=== PATIENT | male | born 1970 | race Caucasian/White ===

== ENCOUNTER 2022-08-18 08:28 | Inpatient (IN) | payer OTHER, SELFPAY ==
[2022-08-13 12:42] VITALS: BMI 28.7
[2022-08-18] VITALS (12 sets, daily range): BP systolic 81–129; BP diastolic 38–82; PULSE 67–99; RESP 12–20; TEMP 35.9–36.7; O2SAT 90–97; BMI 28.5
--- NOTE | 2022-08-18 | PATH_ITS ---
[facility] Accession Number: [id number] No. of containers..01 Tissue . 01 Material submitted: . prostate - PROSTATE . 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 Ayan grade 3+3=6. Two minute foci (0.4 cm and 0.1cm) in two separate fragments, involving less than 5% of the extensively submitted specimen. Seminal vesicle invasion not identified. Perinerual invasion not identified. Extraprostatic fat invasion not identified. Lymphovascular invasion: Not identified. Margins: Uninvolved. Additional pathologic findings: Prostatic hyperplasia. See comment. [facility] 08/28/2022 1658 Local . 01 Comment: Extensively submitted prostatectomy specimen shows two minute foci of adenocarcinoma on slides A11 and A14 and is confirmed with a high molecular weight and p63 cocktail immunostain and a AMACR immunostain (performed on slide A11).Controls stain appropriately. No ink is identified and hence site assessment canot be determined. Tumor quantitation is less than 5%. Selected slides (A11 and A14) have has also been reviewed by Dr. Leonard Ortiz, who concurs with the diagnosis. . * This test was developed and its performance characteristics determined by [facility]. It has not been cleared or approved by the U.S. Food and Drug Administration. The FDA has determined that such clearance or approval is not necessary. This test is used for clinical purposes. It should not be regarded as investigational or for research. . 01 Electronically signed: . Bethany Hicks MD, Pathologist NPI- [id number] . 01 Gross description: . Received in formation, labeled prostate is a 26-gram simple prostatectomy specimen which measures 3.5 cm from apex to base, 4.2 cm from right to left, and 3.1 cm from anterior to posterior. The right half is marked with blue, and the left half with black ink. The specimen is bisected through the urethra into right and left halves, revealing a 2.0 x 1.2 cm urethra with pink-dye unremarkable mucosa. Each half is then serially sectioned proceeding from apex to base revealing a multinodular cut surface with the nodules ranging up to 2.0 cm in greatest dimension. There are no areas of orange/gold discoloration identified. There are no discrete masses identified. Uninvolved prostate parenchyma is pink-dye and spongy. Also submitted in the specimen container is a 4.0 x 3.5 x 1.5 cm irregular, fragmented and cauterized portion of red-brown stromal tissue. Sectioning reveals a pale, yellow-dye smooth cut surface. There is also a 1.7 cm in length by 0.6 cm in diameter, cylindrical portion of apparent seminal vesicle. Rn Perioperative sections of the right half of the specimen are submitted in A1-A5. Rn Perioperative from the left half are submitted in A6-A10. Rn Perioperative sections of the possible seminal vesicle and separate stromal tissue are submitted in A11. Additional sections are submitted in cassettes A12-A21. ([id number]) /MRV 08/26/[address] [place] [address] . Pathologist provided ICD-10: N40.1, C61 . 01 CPT . 484459, [id number], V00392 Specimen Comment: A courtesy copy of this report has been sent to [phone] Performed at: 01 [facility] [address] [place] [address], [place], [place] [id number] MD Jed Chiu MD Phone: [phone]
[2022-08-18] MEDS: LACTATED RINGERS 1,000 ML 21 ML IV ×2 (09:25→12:51)
[2022-08-18 09:26] LABS: Hematocrit 45.5 % (41-53); Hemoglobin 15.4 g/dL (13.5-17.5)
[2022-08-18 09:54] LABS: COVID19 -Nasal RAPID Negative (Negative)
--- NOTE | 2022-08-18 10:27 | P.OP.PRE_ITS ---
Pre-operative Note COVID-19 Criteria for continued procedure: Expected advancement of disease process, Possibility delay results in more complex future surgery or treatment, Increased loss of function, Deterioration of the patient's condition or overall health, Delay expected to result in less-positive ultimate med/surg outcome and Non- surgical alternatives not available or appropriate per current SOC Interval Note History & Physical reviewed/Exam performed by Physician: Yes Changes to H&P: No
[2022-08-18] MEDS: CEFAZOLIN 2 GM/100 ML PREMIX 100 ML IV (11:05)
--- NOTE | 2022-08-18 11:53 | SUR.OPER ---
Supine on padded OR bed, head on pillow, arms secured on padded arm boards at <90 degrees abduction, legs uncrossed, safety belt at thigh,
[2022-08-18] MEDS: BUPIVACAINE 0.5% W/ EPI (PF) 30 ML VIAL INJ (12:00)
[2022-08-18] MEDS: GENTAMICIN 160 MG IRR (12:01)
[2022-08-18] MEDS: SODIUM CHLORIDE 0.9% IRR (12:01)
[2022-08-18] MEDS: BUPIVACAINE LIPOSOME 266 MG/20 ML VIAL INJ (12:03)
[2022-08-18] MEDS: TRANEXAMIC ACID 1,000 MG in SODIUM CHLORIDE 0.9% 100 ML 200 MG IV (12:25)
[2022-08-18 13:24] LABS: Appearance Urine UA CLEAR; Bilirubin Urine UA NEGATIVE (NEGATIVE); Color Urine UA YELLOW; Glucose Urine UA NEGATIVE (Negative); Ketones Urine UA NEGATIVE (NEGATIVE); Leukocyte Esterase Urine UA NEGATIVE (NEGATIVE); Nitrite Urine UA NEGATIVE (Negative); Occult Blood Urine UA 3+ (Negative); Protein Urine UA NEGATIVE (Negative); Specific Gravity Urine UA 1.025 (1.000-1.035); Urobilinogen Urine UA 0.2 E.U./dL (0.2)
[2022-08-18 13:33] LABS: Bacteria Urine None Seen; Culture Indicated Urine Cult Not Indicated; RBC Urine 30-100/HPF (0-5/HPF); Squamous Epithelial Cell Urine 0-1 /HPF (0-5/HPF); WBC Urine 0-1/HPF (0-5/HPF)
--- NOTE | 2022-08-18 13:42 | P.OP_ITS ---
Operative Date/Time/Diagnoses Date of procedure: 08/18/22 Time of procedure: 13:42 Pre-op diagnosis: 1. Bladder outlet obstruction. 2. Failure medical therapy. Post-op diagnosis: same Procedure & Clinicians Procedure: 1. Simple open prostatectomy. Same procedure as scheduled: Yes Surgeon: Gordon Black Daycare Assistant: Tia Low Click Yes if Unassisted: No Anesthesia Type: General, Spinal (Duramorph spinal) and Local (0.25% Marcaine with epinephrine and diluted Exparel 1.33%.) Operative Notes Findings: 1. Normal midline lower abdominal tissue planes. 2. Prostate trabeculation. 3. Nodular BPH with dense adherence to surgical capsule. Closure Type: primary Specimen(s): other (Prostate adenoma.) Applied: catheter (Twenty-two Portuguese [address] hematuria catheter to gravity drainage.) and drain(s) (18. Portuguese fenestrated Volodymyr drain.) Estimated Blood Loss (mL): 500 Blood products transfused: none Procedure in detail: The patient underwent placement of Duramorph spinal anesthesia. Evaluation Specialist reported that a small amount of CSF was seen at initial needle placement. Otherwise unremarkable. The patient was then positioned supine and was administered general anesthesia. The abdomen, genitalia, and groin were then prepped and draped in sterile fashion. A midline infraumbilical incision was then made above the pubic symphysis in using blunt, sharp, and cautery technique midline lower abdominal wall was divided and the retropubic pelvic peritoneum was entered. A 20 Portuguese Alaniz catheter was inserted, the balloon inflated 10 cc, and the contents the bladder drained. 450 cc of sterile saline were then instilled in the bladder and the catheter clamped. The bladder was identified in the anterior wall and dome were then cleared of adherent fat. 0.25% Marcaine with epinephrine was then used to infiltrate the midline anterior bladder wall. A cystotomy was then created in the bladder contents drained. This cystotomy was then extended distally to just above the bladder neck using the power seal cauterized and ligating device. Retractors were positioned appropriately for visualization and access. A solution of 0.25% Marcaine with epinephrine was then used to infiltrate the mucosa and subcutaneous smooth muscle of the bladder neck circumferentially. Cautery pen was then used to create a circumferential incision around the bladder neck to include the protruding median lobe and lateral lobe adenoma. The ureteral orifices were identified bilaterally and were generously avoided. The cautery pen was then using combination of blunt dissection to reach the surface of the adenoma. The appropriate plane was then followed using blunt, sharp common cautery technique circumferentially and distally. A 0 Vicryl suture was used to engage the adenoma for mobilization and visualization through dissection. Ultimately the apical region was encountered and the urethra was divided from the prostate apex using blunt technique. Prostate fossa was then packed with a lap sponge for approximately 5 minutes. Lap sponge was then removed and areas of bleeding anteriorly and at the right lateral aspect were suture ligated for hemostasis using a [id number] technique. An additional 2-0 Monocryl was then placed in the midline posterior bladder neck and then secured approximately midway down the prostatic adenoma void and tied to the posterior capsule. A [address] hemat[address] catheter was then advanced into the bladder over a catheter guide and then directed through the prostate and into the bladder with the index finger the opposite hand. A 2 layer closure the cystotomy was then conducted using 2-0 Monocryl. The inner mucosal muscular layer was a running, intermittently locking technique. The outer, serosa muscular layer was a running vertical mattress using a Lembert technique. The balloon was then inflated to 30 cc and bladder was irrigated to a light pink. No clots were seen. Irrigation was repeated again prior to closure of the abdominal wall and then a 3rd time after closure of the abdominal wall. A 18 Portuguese fenestrated Volodymyr drain (15 Portuguese Volodymyr drain on back order) was then placed through a separate stab incision to the right of the midline incision for the end of the drain positioned in the space of Retzius. It was secured to the skin with 2-0 silk using Giles sandal technique in usual fashion. The midline rectus abdominis fascia was then reapproximated using running 0 PDS. One suture was started at the superior apex, the other suture at the inferior apex and were then run to a proximally the mid point where the 2 were tied to 1 another. Subcutaneous Aramis's fascia was closed with running 3-0 Vicryl. The skin was reapproximated with a running 4-0 Monocryl using a subcuticular technique. The skin surfaces were cleaned and dried. Telfa was then cut and tailored appropriately to fit over the incision line in the drain site. A transparent Op site was then applied over both the incision and the drain site. The patient was then awakened, transferred to [facility], and transported to recovery awake and in stable condition. A manager surgical was required in this case for crucial assistance and retraction, assistance with hemostasis, exposure, and access. Complications: none Post-operative Condition: stable Disposition: PACU Plan for aftercare: Admit to acute care.
[2022-08-18] MEDS: LACTATED RINGERS 1,000 ML 125 ML IV ×2 (15:00→23:14)
[2022-08-18 15:22] LABS: Estimated Glomerular Filt Rate > 60 mL/min (>60)
[2022-08-18] MEDS: OXYCODONE IR 5 MG TABLET PO (18:49)
--- NOTE | 2022-08-18 19:28 | PC.NURSE ---
Patients ml dressing is cdi. He has a 3 way stock putting out red to pink urine. He has been up ambulating and tolerating this well. Given an oxycodone as he state that he feels pressure in abdomen. Tried to have a bm, explained to patient that he does not want to strain when using the bathroom. in room. Stock patent and flowing red urine.
[2022-08-18] MEDS: TAMSULOSIN 0.4 MG CAPSULE PO (20:14)
[2022-08-18] MEDS: ATORVASTATIN 20 MG TABLET 40 MG PO (20:14)
[2022-08-19] VITALS: BP 103/52; PULSE 82; TEMP 37.1; O2SAT 96
[2022-08-19] MEDS: OXYCODONE IR 5 MG TABLET PO ×6 (01:31→20:58)
--- NOTE | 2022-08-19 07:25 | P.PN_ITS ---
Subjective Subjective Date Patient Seen: 08/19/22 Time Patient Seen: 07:10 Interval history: The patient is a 52-year-old male postoperative day 1 status post simple prostatectomy for bladder outlet obstruction and failure medical therapy. Exam Vital Signs (past 8 hours): - 08/19/22 00:00 Temperature 98.8 F Pulse Rate 82 Blood Pressure 103/52 L Pulse Oximetry 96 Oxygen Flow Rate 0 Oxygen Delivery Method Room Air Oxygen Flow Rate 0 Narrative Exam Narrative: He is ambulating about the room and in no distress, but does complain of bladder spasms symptoms. Chest-equal and unlabored expansion bilaterally. Heart-normal sinus rhythm. Abdomen-KUMAR drain intact with scant serosanguineous output. Dressings are intact. Alaniz-intact and draining light, pink tinged urine without clot. Objective Labs 08/18/22 09:15 08/18/22 14:50 Labs: Laboratory Results - last 24 hr 08/18/22 08/18/22 08/18/22 09:05 09:15 09:15 Hgb 15.4 Hct 45.5 Creatinine Estimated GFR Urine Color Urine Appearance Urine pH Ur Specific [place] Urine Protein Urine Glucose (UA) Urine Ketones Urine Occult Blood Urine Nitrate Urine Bilirubin Urine Urobilinogen Ur Leukocyte Esterase Urine RBC Urine WBC Ur Squamous Epith Cells Urine Bacteria Ur Culture Indicated? SARS-CoV-2 (PCR) Negative Blood Type O Positive Antibody Screen Negative 08/18/22 08/18/22 11:49 14:50 Hgb Hct Creatinine 1.11 Estimated GFR > 60 Urine Color Yellow Urine Appearance Clear Urine pH 6.0 Ur Specific [place] 1.025 Urine Protein Negative Urine Glucose (UA) Negative Urine Ketones Negative Urine Occult Blood 3+ H Urine Nitrate Negative Urine Bilirubin Negative Urine Urobilinogen 0.2 Ur Leukocyte Esterase Negative Urine RBC 30-100/hpf H Urine WBC 0-1/hpf Ur Squamous Epith Cells 0-1 /hpf Urine Bacteria None seen Ur Culture Indicated? Cult not indicated SARS-CoV-2 (PCR) Blood Type Antibody Screen PFSH Medical History (Updated 08/13/22 @ 13:17 by Nikki Angelo RN) BPH w urinary obs/LUTS COVID-19 virus infection (11/2021) Enlarged prostate Family history of malignant neoplasm of prostate Head injury (~1994) Hx of hyperlipidemia Surgical History (Updated 08/13/22 @ 13:09 by Nikki Angelo RN) Hx of arthroscopic knee surgery Family History Father FH: CVA (cerebrovascular accident) Hyperlipidemia Social History marital status: number of children: 0 household members: spouse and children Smoking Status: Never smoker alcohol intake: current Assessment & Plan Assessment & Plan narrative: Assessment: 1. Stable postop day 1 status post simple open prostatectomy. 2. Bladder spasm. 3. Pathology pending. Plan: 1. Increase diet and activity. 2. Ditropan XL as needed for bladder spasm. 3. Follow-up on surgical pathology when final. Time Spent With Patient Critical Care time: I spent a total of [] minutes of critical care time on this patient's care today; this time is exclusive of procedural time. Quality VTE Deep Vein Thrombosis/Pulmonary Embolism Present on Admission: No
[2022-08-19] MEDS: OXYBUTYNIN 5 MG ER TAB 10 MG PO (08:42)
[2022-08-19] MEDS: PHENAZOPYRIDINE 100 MG TABLET 200 MG PO ×2 (08:42→21:05)
[2022-08-19] MEDS: ACETAMINOPHEN 325 MG TABLET 650 MG PO ×2 (08:43→20:58)
[2022-08-19] MEDS: BISACODYL 10 MG SUPP PR (08:46)
[2022-08-19] MEDS: TAMSULOSIN 0.4 MG CAPSULE PO ×2 (08:47→20:58)
--- NOTE | 2022-08-19 11:37 | CM.DANOTE ---
DCP: Assessment: Received Case, EMR reviewed. Pt is a 52 yo M who arrived via POV under the care of Surgeon/Urology and underwent pre-planned simple open prostectomy. Pt has hx of bladder outlet obstruction. This CM met with pt in his room. Pt was standing using fww. Stating that he felt more comfortable in the standing position. Pt's present in room. Pt confirms that he lives with his in [place]. He reports that he drives at baseline and that he did not use dme at baseline. states that she will be flying out of state early in the am and Pt and state that pt's Mom will be staying with pt at his home for a week along with their adult daughter to support with any care needs. PCP: Brent Hathaway Insurance: [facility] Plan: Home with family when medically stable. Sara Son RN Case Manager Discharge Planning/Care Management CM Discharge Assessment Start: 08/19/22 11:27 Freq: Status: Active Protocol: Document 08/19/22 11:27 ARGELIA (Rec: 08/19/22 11:32 [id number]) Discharge Planning Assessment Assigned Digital Account Supervisor Sara Son RN Case Manager Advance Directives? Yes Advance Directives on File No History Provided By Patient Has Patient been admitted in last 30 No days? Prior Living Arrangements House Household Members spouse,children Type of transporation used prior to Drives own vehicle admit Independent with ADL's Yes Is patient alert and oriented? Yes Caregiver for Another No Barriers to Discharge No Discharge Plan Home Transportation Arrangement Family will transport Referrals Initiated None needed Whiteboard Updated in Patient Room with Yes name and ext. # of Digital Account Supervisor Review Status In Process Next Review Type Continued Stay Review Pre-Anesthesia Assessment Start: 08/13/22 12:42 Freq: Status: Complete Protocol: Document 08/13/22 12:42 CAB (Rec: 08/13/22 13:25 CAB [id number]) Pre-Anesthesia Assessment Preferred Name Immanuel Patient Information Reviewed Via Phone Assessment Assessment Completed With Patient Primary Care Provider Brent Hathaway Seen Specialist in Last 12 Months Yes Specialist Seen Urologist Primary Language Kazakh Telephone Ad Taker Required No Height 177.8 cm Weight 90.718 kg Body Mass Index (BMI) 28.7 Hearing Ability Normal Visual Impairment No Limitations Visual Assist None Dentition Type Teeth, Natural Present Barriers to Learning None Hx Anesthesia Reactions No Hx Family Anesthesia Reaction No Hx Malignant Hyperthermia No Hx Blood Transfusions No Anesthesia Review Requested No Partition Setter No alcohol intake current alcohol intake frequency a few times a week Smoking Status Never smoker Tobacco type smokeless tobacco how long ago did patient quit smoking Currently chews tobacco Substance Use Type does not use Pain Present Denied Pain History of Falling (Recent or History of Yes ) Patient is completely paralyzed or No completely immobile Mental Status Oriented to own ability Is patient on oxygen? No Does patient have CHERRY/SOB No Hx Sleep Apnea No Currently Taking a Beta Christy No Can You Climb a Flight of Stairs Without Yes SOB Hx Chest Pain No Hx SOB No Hx Syncope or Dizziness No Anti-Coagulant Therapy No Has a Wet Process Technician No Cardiac Testing No Hx Pacemaker/ICD No Pacemaker Rep Required? No Cardiac Clearance Received Not Applicable Diet Type At Home Regular Dysphagia No Gastrointestinal Symptoms None Bladder Pattern Frequency,Nocturia Urinary Catheter Present No Hx Urinary Self Catheterization No Diabetes No Hx Drug Resistant Organism No Presence of External or Internal Medical No Devices Have you had any close contact with No someone diagnosed with COVID-19? Received a COVID vaccine? Yes Received all doses? No Marital Status Lives With spouse,children Current Living Arrangements House Number of Floors (Floors) Two Floors Support System Spouse Does the Patient Have Assistance After Yes Surgery Patient Discharge Plan Description Return Home Comment Pt advised 2 night length of stay per surgeon Feels Safe in Current Environment Yes Been Physically Hurt or Threatened By a No Person in Current Environment Do you have thoughts of harming yourself None or others? Are you currently considering suicide? No Do you have a plan to hurt yourself or No Plan others? Do You Have Any Spiritual Beliefs That No May Affect Your HC Choices? Do You Have Any Cultural Practices That No May Affect Your HC Choices? Who Can We Speak to About Patient's Care Family, friends Identifying Code for Release of Patient Declines to issue Information Health Care Proxy/Next of Kin [place] () Health Care Proxy Emergency Contact Name Praadise () Emergency Contact Advance Directives? No Power of Budget Assistant No PAC Instructions Medications to take/avoid,No ETOH/petroleum product on skin DOS,NPO,Sturdy shoes/ comfortable clothes,Do not bring valuables and remove jewelry
[2022-08-19 12:31] VITALS: BP 119/69; PULSE 75; RESP 14; TEMP 37.1; O2SAT 96
[2022-08-19 17:00] VITALS: BP 130/72; PULSE 68; RESP 14; TEMP 37.3; O2SAT 97
--- NOTE | 2022-08-19 19:42 | PC.NURSE ---
patient is alert and oriented. indep w/ mobility, using FWW. stock is patent, draining farfan colored urine to gravity. c/o discomfort at insertion site, lube and house silicone cream applied after sri-care completed by patient. encouraged sling/ ice to area + patient agreed this was helpful. midline incision dressing is CDI. Dr Farnsworth will return tomorrow to f/u w/ dressings and drain. PRN oxycodone effective thru the day. left on a trip and asked for scripts to be handled today as she will p/u so patient's mother (who took over staying in the room) doesnt have to deal w/ it tomorrow when he d/cs home. scripts were called to [facility] and [facility] picked up. her phone number : [phone]
[2022-08-19 20:25] VITALS: BP 100/59; PULSE 69; RESP 18; TEMP 36.8; O2SAT 95
[2022-08-19] MEDS: ATORVASTATIN 20 MG TABLET 40 MG PO (20:58)
[2022-08-19] MEDS: SODIUM CHLORIDE 0.9% FLUSH 10 ML IV (21:00)
[2022-08-19 23:30] VITALS: BP 100/49; PULSE 65; RESP 18; TEMP 36.4; O2SAT 91
--- NOTE | 2022-08-20 01:40 | PC.NURSE ---
Patient is alert and oriented. Breath sounds CTA but respirations are shallow; RA sat 95%. HRR w/soft BP of 100/59. Denies nausea. BT hypoactive and denies flatus but reports he had a liquid stool during previous shift. Indwelling catheter is patent; hematuria w/orange color related to taking Pyridium for spasms. Complained of 6/10 abdominal/scrotal pain earlier and was medicated with oxycodone as well as pyridium and currently states pain is only 2/10. Ice pack provided for additional pain relief. Is independent with mobility but is using a walker for stability; up walking in room frequently. Declined use of SCD's tonight as is up so frequently. Fall risk score is moderate. Mom rooming in.
[2022-08-20] MEDS: OXYCODONE IR 5 MG TABLET PO ×2 (02:23→06:30)
[2022-08-20] MEDS: ACETAMINOPHEN 325 MG TABLET 650 MG PO ×2 (02:23→06:30)
[2022-08-20 05:50] VITALS: BP 107/63; PULSE 67; RESP 19; TEMP 36.5; O2SAT 95
[2022-08-20 08:00] VITALS: BP 113/66; PULSE 78; RESP 18; TEMP 36.5; O2SAT 94
[2022-08-20] MEDS: ENOXAPARIN 40 MG/0.4 ML SYRINGE SUBCUT (09:15)
[2022-08-20] MEDS: OXYBUTYNIN 5 MG ER TAB 10 MG PO (09:15)
[2022-08-20] MEDS: TAMSULOSIN 0.4 MG CAPSULE PO (09:16)
--- NOTE | 2022-08-20 12:08 | PM.DS.1 ---
History of Present Illness History of Present Illness Chief complaint: Prostatectomy Discharge Providers Provider Date of admission: 08/18/22 08:28 Discharge Date: 08/20/22 Primary care physician: Brent Hathaway MD Discharge provider: Gordon Black MD Exam Vital Signs (past 8 hours): - 08/20/22 05:50 08/20/22 07:30 08/20/22 08:00 Temperature 97.7 F 97.7 F Pulse Rate 67 78 Respiratory Rate 19 18 Blood Pressure 107/63 113/66 Pulse Oximetry 95 94 Oxygen Delivery Method Room Air Oxygen Flow Rate 0 0 Oxygen Delivery Method Room Air Oxygen Flow Rate 0 Objective Labs 08/18/22 09:15 08/18/22 14:50 PFSH Medical History (Updated 08/13/22 @ 13:17 by Nikki Angelo RN) BPH w urinary obs/LUTS COVID-19 virus infection (11/2021) Enlarged prostate Family history of malignant neoplasm of prostate Head injury (~1994) Hx of hyperlipidemia Surgical History (Updated 08/13/22 @ 13:09 by Nikki Angelo RN) Hx of arthroscopic knee surgery Family History Father FH: CVA (cerebrovascular accident) Hyperlipidemia Social History marital status: number of children: 0 household members: spouse and children Smoking Status: Never smoker alcohol intake: current Discharge Plan Discharge Plan Patient Disposition: Home Provider Discharge Comment: Please contact the urology clinic to schedule postop appointments. Discharge orders & Medications Prescriptions: Continued ciprofloxacin HCl 250 mg tablet 250 mg PO BID Qty: 6 0RF Rx Instructions: Begin in the morning, the day before scheduled catheter removal. enoxaparin [Lovenox] 40 mg/0.4 mL syringe 40 mg SUBCUT DAILY Qty: 12 0RF Rx Instructions: Administer 1 prefilled syringe as directed subcutaneously daily. oxycodone 5 mg tablet 5 mg PO Q4H PRN (Reason: pain) Qty: 20 0RF tamsulosin 0.4 mg capsule 0.4 mg PO BID atorvastatin 40 mg tablet 40 mg PO DAILY Follow up/Referrals: Brent Hathaway MD [Primary Care Provider] - Diet/Activity/Treatments Diet: Diet as Tolerated Activity: Do not lift objects greater than 15 lb x 4 weeks. Catheter: 2-way Alaniz Catheter comment: Large bag for in-home use and at night. Leg bag for when out of home. Other treatments: No submersion of incision in water for 2 weeks. May shower daily. Skin/Wound/Dressing Care Skin care: Leave incision open to air. Report to your healthcare provider any signs of infection, such as:: chills, fever, night sweats, increased pain, unusual drainage and unusual redness Visit Report/Discharge Packet Instructions: How to Care for Your Alaniz Catheter -- Male, DI for Constipation, How to Prevent Falls, DI for Prescription Opioid Use, DI for Taking Pain Medication, Enoxaparin Injection Discharge Data Primary Care Provider: Brent Hathaway VTE Deep Vein Thrombosis/Pulmonary Embolism Present on Admission: No
--- NOTE | 2022-08-20 12:11 | PM.DS.1 ---
History of Present Illness History of Present Illness Date Patient Seen: 08/20/22 Time Patient Seen: 07:20 Chief complaint: Prostatectomy Narrative: The patient is a 52-year-old male admitted on 08/18/2022 to undergo simple open prostatectomy for markedly enlarged prostate, severe lower urinary tract symptoms, and dissatisfaction with medical therapy. Discharge Providers Provider Date of admission: 08/18/22 08:28 Discharge Date: 08/20/22 Primary care physician: Brent Hathaway MD Discharge provider: Gordon Black MD Summary Hospital Course Discharge Diagnosis: 1. Bladder outlet obstruction due to markedly enlarged prostate. 2. Dissatisfaction with medical therapy. Hospital Course: Patient was admitted on the morning of 08/18/2022 and underwent uncomplicated simple open prostatectomy under Duramorph spinal and general anesthesia. His postop course was essentially unremarkable in that he tolerated general diet, was able to transfer and ambulate without assistance, and was able to manage postoperative discover with oral NSAID and narcotic analgesic beginning the 1st postoperative morning. In the late morning, 08/20/2022, the patient was stable for discharge. He is provided routine post prostatectomy activity, driving, and hygiene instructions/restrictions. Discharge prescriptions for submitted on 08/19/2022. Common side effects, precautions, and intake/administration instructions explained before discharge. Follow-up appointments were discussed and will be confirmed telephonically with Urology Clinic after discharge. Exam Vital Signs (past 8 hours): - 08/20/22 05:50 08/20/22 07:30 08/20/22 08:00 Temperature 97.7 F 97.7 F Pulse Rate 67 78 Respiratory Rate 19 18 Blood Pressure 107/63 113/66 Pulse Oximetry 95 94 Oxygen Delivery Method Room Air Oxygen Flow Rate 0 0 Oxygen Delivery Method Room Air Oxygen Flow Rate 0 Narrative Exam Narrative: The patient is sitting upright at the bedside and engaged in catheter and urine collection bag teaching. He is in no distress. Chest-equal and unlabored expansion bilaterally. Heart-normal sinus rhythm. Abdomen-incision is intact without early evidence of complication. Genitalia-indwelling Alaniz catheter draining light maroon urine without clot. Extremities-no pallor, edema or cyanosis. Objective Labs 08/18/22 09:15 08/18/22 14:50 [facility] Medical History BPH w urinary obs/LUTS COVID-19 virus infection (11/2021) Enlarged prostate Family history of malignant neoplasm of prostate Head injury (~1994) Hx of hyperlipidemia Surgical History Hx of arthroscopic knee surgery Family History Father FH: CVA (cerebrovascular accident) Hyperlipidemia Social History marital status: number of children: 0 household members: spouse and children Smoking Status: Never smoker alcohol intake: current Discharge Assessment & Plan Assessment and Plan Assessment: 1. Stable postop day 1 Status post simple open prostatectomy. 2. Indwelling Alaniz catheter. 3. Pathology pending. Plan of Treatment: 1. Discharge home today. 2. Catheter care and use instruction before discharge. 3. Review surgical pathology when final in outpatient setting. Discharge Plan Discharge Plan Patient Disposition: Home Provider Discharge Comment: Please contact the urology clinic to schedule postop appointments. Discharge orders & Medications Prescriptions: Continued ciprofloxacin HCl 250 mg tablet 250 mg PO BID Qty: 6 0RF Rx Instructions: Begin in the morning, the day before scheduled catheter removal. enoxaparin [Lovenox] 40 mg/0.4 mL syringe 40 mg SUBCUT DAILY Qty: 12 0RF Rx Instructions: Administer 1 prefilled syringe as directed subcutaneously daily. oxycodone 5 mg tablet 5 mg PO Q4H PRN (Reason: pain) Qty: 20 0RF tamsulosin 0.4 mg capsule 0.4 mg PO BID atorvastatin 40 mg tablet 40 mg PO DAILY Follow up/Referrals: Brent Hathaway MD [Primary Care Provider] - Diet/Activity/Treatments Diet: Diet as Tolerated Activity: Do not lift objects greater than 15 lb x 4 weeks. Catheter: 2-way Alaniz Catheter comment: Large bag for in-home use and at night. Leg bag for when out of home. Other treatments: No submersion of incision in water for 2 weeks. May shower daily. Skin/Wound/Dressing Care Skin care: Leave incision open to air. Report to your healthcare provider any signs of infection, such as:: chills, fever, night sweats, increased pain, unusual drainage and unusual redness Visit Report/Discharge Packet Instructions: How to Care for Your Alaniz Catheter -- Male, DI for Constipation, How to Prevent Falls, DI for Prescription Opioid Use, DI for Taking Pain Medication, Enoxaparin Injection Discharge Data Primary Care Provider: Brent Hathaway VTE Deep Vein Thrombosis/Pulmonary Embolism Present on Admission: No
--- NOTE | 2022-08-20 12:56 | PC.NURSE ---
Pending discharge: Pt feels ready to d/c to home. Dr. Murray in to see patient x2. MD gave d/c instructions. Pt also having spasms and leaking of urine around cath. MD removed some fluid from stock balloon. Pt reports he is having less spasms and leaking now. Reviewed d/c packet. Pt changed from the large bag to the leg bag and back again. learned how to clean and rinse bag. Shown how to do cath care. No petroleum based products. If pt has any problems he knows to call MD's office. Pt is tolerating diet w/out problems, has had a sm bm today. Po pain meds effective. Pt d/c to home via auto with his mom. Spouse picked up rx yesterday.
== END 2022-08-20 13:00 | disposition home or self-care (01) | DRG 988 ==
PROVIDERS: Admitting Provider Specialist; PCP Family Medicine; Referring Provider Specialist; Visit Provider Specialist
PROC: 0VT00ZZ Resection of Prostate, Open Approach (ICD-10-PCS; principal; 2022-08-18 10:15)
DX: N32.0 Bladder-neck obstruction (principal); N13.8 Other obstructive and reflux uropathy; N40.1 Benign prostatic hyperplasia with lower urinary tract symptoms; E78.5 Hyperlipidemia, unspecified; Z80.42 Family history of malignant neoplasm of prostate; Z20.822 Contact with and (suspected) exposure to COVID-19
CPT/HCPCS: 36415; 55821; 81001; 82565; 82962; 85014; 85018; 86850; 86900; 86901; 87635; C9803; C9290; J0330; J0690; J1100; J1170; J1650; J2274; J2704

== ENCOUNTER 2022-09-22 07:40 | Outpatient (RCR) | payer OTHER, SELFPAY ==
[2022-08-18 08:42] VITALS: BMI 28.5
--- NOTE | 2022-09-22 12:00 | PT.OPPOC ---
Physical, Occupational & Speech Therapy At [facility] Current Diagnoses Other obstructive and reflux uropathy (09/22/22) Benign prostatic hyperplasia with lower urinary tract symptoms (09/22/22) Visit Care Team Role Provider Type Brent Hathaway MD Family Provider Non-Staff Primary Care Provider Specialty: Medical Address: [facility] [place], [address] Email: Gordon Blakc MD Attending Provider Physician Referring Provider Specialty: Urology Address: [facility] [place] [address], [address] Email: Plan Of Care PT-OP-T Assessment and Plan Start: 09/21/22 10:55 Freq: Status: Active Protocol: Document 09/22/22 08:23 AMB (Rec: 09/22/22 09:02 AMB [id number]) Physical Therapy Assessment Rehab Potential Rehabilitation Potential Good Evaluation Complexity Number of Personal Factors/Comorbidities 0 Number of Body Systems Impaired 1-2 Clinical Presentation at Evaluation Stable Goals One Short Term Goal (STG) Pt will be independent and compliant with HEP for pelvic floor strengthening. STG Duration 4 weeks Assessment Summary Assessment Immanuel is doing well s/p open prostatectomy. Does wake up once/night to void urine, but otherwise no complaints. Some burning pain over drain scar. Has returned to intercourse without issue, no constipation issues. 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 No urinary leaking, really feels like he's been doing well in the last 2 weeks. Educated in how to perform pelvic floor strengthening and given written handout. Pt discharged as he is doing well without complaints or urinary leaking after returning to physial activity. Physical Therapy Plan Frequency and Duration Frequency of Treatment 1x/Week Duration of treatment (weeks) 1 Plan of Care Start Date 09/22/22 Plan of Care End Date 09/29/22 Therapeutic Interventions Therapeutic Interventions Home Exercise Program, Therapeutic Exercises Discharge Physical Therapy Discharge Reasons Goals Met Plan of Care Dates Plan of Care Start Date 09/22/22 Plan of Care End Date 09/29/22 Electronically Signed by: Laurie Hardy, PT 03/807 If you are in agreement with this Plan of Care, please return a signed and dated copy. I have reviewed this Plan of Care and certify that the skilled therapy services above are required to meet the patient?s needs. Physician Signature Date Printed Name and Credentials Clinical Instructor Signature Printed Name and Credentials
--- NOTE | 2022-09-22 12:00 | PT.OIE ---
Current Diagnoses Other obstructive and reflux uropathy (09/22/22) Benign prostatic hyperplasia with lower urinary tract symptoms (09/22/22) Past Medical History (Last Reviewed 08/20/22 @ 12:15 by Gordon Black MD) BPH w urinary obs/LUTS COVID-19 virus infection (11/2021) Enlarged prostate Family history of malignant neoplasm of prostate Head injury (~1994) Hx of hyperlipidemia Past Surgical History (Last Reviewed 08/20/22 @ 12:15 by Gordon Black MD) Hx of arthroscopic knee surgery Visit Care Team Role Provider Type Brent Hathaway MD Family Provider Non-Staff Primary Care Provider Specialty: Medical Address: [address] [place] [address], [address] Email: Gordon Black MD Attending Provider Physician Referring Provider Specialty: Urology Address: [address] [place] [address], [address] Email: Physical Therapy Initial Evaluation PT-OP-A Visit Information Start: 09/21/22 10:55 Freq: Status: Active Protocol: Document 09/22/22 08:23 AMB (Rec: 09/22/22 09:02 AMB [id number]) Out-Patient Physical Therapy Visit Information Visit Information Visit Type Initial Evaluation Visit Start Time 08:15 Visit Stop Time 09:00 Total Visit Minutes 45 Visit Number 1 PT-OP-B Current Condition Start: 09/21/22 10:55 Freq: Status: Active Protocol: Document 09/22/22 08:23 AMB (Rec: 09/22/22 09:02 AMB [id number]) Current Condition History of Current Condition Onset Date 08/18/22 Current Complaints History of open prostatectomy History of Current Condition Had surgery 6 weeks ago. 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 In the last week has returned to most activity without any leaking. Feeling really good. Able to go 2-4 hours without voiding. PT-OP-I Pelvic Floor Start: 09/21/22 10:55 Freq: Status: Active Protocol: Document 09/22/22 08:23 AMB (Rec: 09/22/22 09:02 AMB [id number]) Pelvic Floor Assessment Urine Pelvic Floor Surgery Yes: open prostatectomy Urinary Symptoms Dribbling After Urination Comments Pelvic Floor Comments no leaking noted PT-OP-T Assessment and Plan Start: 09/21/22 10:55 Freq: Status: Active Protocol: Document 09/22/22 08:23 AMB (Rec: 09/22/22 09:02 AMB [id number]) Physical Therapy Assessment Rehab Potential Rehabilitation Potential Good Evaluation Complexity Number of Personal Factors/Comorbidities 0 Number of Body Systems Impaired 1-2 Clinical Presentation at Evaluation Stable Goals One Short Term Goal (STG) Pt will be independent and compliant with HEP for pelvic floor strengthening. STG Duration 4 weeks Assessment Summary Assessment Immanuel is doing well s/p open prostatectomy. Does wake up once/night to void urine, but otherwise no complaints. Some burning pain over drain scar. Has returned to intercourse without issue, no constipation issues. 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 No urinary leaking, really feels like he's been doing well in the last 2 weeks. Educated in how to perform pelvic floor strengthening and given written handout. Pt discharged as he is doing well without complaints or urinary leaking after returning to physial activity. Physical Therapy Plan Frequency and Duration Frequency of Treatment 1x/Week Duration of treatment (weeks) 1 Plan of Care Start Date 09/22/22 Plan of Care End Date 09/29/22 Therapeutic Interventions Therapeutic Interventions Home Exercise Program, Therapeutic Exercises Discharge Physical Therapy Discharge Reasons Goals Met
--- NOTE | 2022-09-23 08:10 | PT.OPDS ---
Current Diagnoses Other obstructive and reflux uropathy (09/22/22) Benign prostatic hyperplasia with lower urinary tract symptoms (09/22/22) Visit Care Team Role Provider Type Brent Hathaway MD Family Provider Non-Staff Primary Care Provider Specialty: Medical Address: [address] [place], [address] Email: Gordon Black MD Attending Provider Physician Referring Provider Specialty: Urology Address: [address] [place] [address], [address] Email: Visit Number Visit Number 1 Discharge Summary PT-OP-B Current Condition Start: 09/21/22 10:55 Freq: Status: Active Protocol: Document 09/22/22 08:23 AMB (Rec: 09/22/22 09:02 AMB [id number]) Current Condition History of Current Condition Onset Date 08/18/22 Current Complaints History of open prostatectomy History of Current Condition Had surgery 6 weeks ago. 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 In the last week has returned to most activity without any leaking. Feeling really good. Able to go 2-4 hours without voiding. PT-OP-I Pelvic Floor Start: 09/21/22 10:55 Freq: Status: Active Protocol: Document 09/22/22 08:23 AMB (Rec: 09/22/22 09:02 AMB [id number]) Pelvic Floor Assessment Urine Pelvic Floor Surgery Yes: open prostatectomy Urinary Symptoms Dribbling After Urination Comments Pelvic Floor Comments no leaking noted PT-OP-T Assessment and Plan Start: 09/21/22 10:55 Freq: Status: Active Protocol: Document 09/22/22 08:23 AMB (Rec: 09/22/22 09:02 AMB [id number]) Physical Therapy Assessment Rehab Potential Rehabilitation Potential Good Evaluation Complexity Number of Personal Factors/Comorbidities 0 Number of Body Systems Impaired 1-2 Clinical Presentation at Evaluation Stable Goals One Short Term Goal (STG) Pt will be independent and compliant with HEP for pelvic floor strengthening. STG Duration 4 weeks Assessment Summary Assessment Immanuel is doing well s/p open prostatectomy. Does wake up once/night to void urine, but otherwise no complaints. Some burning pain over drain scar. Has returned to intercourse without issue, no constipation issues. 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 No urinary leaking, really feels like he's been doing well in the last 2 weeks. Educated in how to perform pelvic floor strengthening and given written handout. Pt discharged as he is doing well without complaints or urinary leaking after returning to physial activity. Physical Therapy Plan Frequency and Duration Frequency of Treatment 1x/Week Duration of treatment (weeks) 1 Plan of Care Start Date 09/22/22 Plan of Care End Date 09/29/22 Therapeutic Interventions Therapeutic Interventions Home Exercise Program, Therapeutic Exercises Discharge Physical Therapy Discharge Reasons Goals Met
== END 2022-09-23 11:25 | disposition home or self-care (01) ==
LOC: PHYS 07:40
PROVIDERS: Family Provider Family Medicine; PCP Family Medicine; Referring Provider Specialist; Visit Provider Specialist
DX: N40.1 Benign prostatic hyperplasia with lower urinary tract symptoms (principal); N13.8 Other obstructive and reflux uropathy
CPT/HCPCS: 97161

== ENCOUNTER → 2022-09-30 10:40 | Outpatient (CLI) | payer OTHER, SELFPAY ==
[2022-08-18 08:42] VITALS: BMI 28.5
== END ==
PROVIDERS: Family Provider Family Medicine; PCP Family Medicine; Visit Provider Specialist
DX: C61 Malignant neoplasm of prostate (principal); N13.8 Other obstructive and reflux uropathy
CPT/HCPCS: 51798; 81002; 87086

== ENCOUNTER 2024-05-16 09:34 | Day surgery (SDC) | payer OTHER, SELFPAY ==
[2022-08-18 08:42] VITALS: BMI 28.5
[2024-05-11 09:48] VITALS: BMI 31.5
[2024-05-16] VITALS (7 sets, daily range): BP systolic 110–129; BP diastolic 70–84; PULSE 75–87; RESP 16–79; TEMP 36.2–36.8; O2SAT 96–98; BMI 30.1
--- NOTE | 2024-05-16 | PATH_ITS ---
[facility] Accession Number: [id number] No. of containers..01 Tissue . 01 Material submitted: . penis - PENIS . 01 Clinical history: . 05-19 PER PARESH VERAGRA, SITE IS BASE OF PENIS /FC . 01 Diagnosis: PENIS, SOFT TISSUE BIOPSY: Schwannoma. MRV 05/20/2024 1554 Local . 01 Comment: Immunohistochemical stains performed show positive staining of lesional cells with SOX-10 marker, and negative staining with SMA, desmin, CD34, and pancytokeratin markers, supporting the above diagnosis. Degenerative features are noted. . The histologic material was reviewed with Dr. Conrad Cortes, who concurs. . 01 Electronically signed: . Lurdes Killian MD, Dermatopathologist NPI- [id number] . 01 Gross description: . Received in formalin with two patient identifiers and cyst, is a dye and brown spheroid soft tissue fragment with no skin grossly identified 2.4 x 1.8 x 1.3 cm. Inked blue and sectioned to reveal a solid and smooth dye-yellow and brown cut surface with a possible cyst wall. Submitted entirely in cassettes A1-A4. ([id number]) /MORIS 05/18/2024 1016 Local . 01 Pathologist provided ICD-10: D36.10 . 01 CPT . 669924, [id number], [id number] Specimen Comment: A courtesy copy of this report has been sent to [facility] Pathology Performed at: [address] [address], [place], [place] [id number] MD Jed Chiu MD Phone: [phone]
[2024-05-16] MEDS: LACTATED RINGERS 1,000 ML 42 ML IV (10:08)
--- NOTE | 2024-05-16 11:20 | PM.PREOP ---
Pre-operative Note COVID-19 COVID-19 status: Not tested Interval Note History & Physical reviewed/Exam performed by Physician: Yes Changes to H&P: No
--- NOTE | 2024-05-16 11:53 | SUR.OPER ---
Supine on padded OR bed, head on pillow, arms secured on padded arm boards at <90 degrees abduction, legs uncrossed, safety belt at thigh, tape over blanket over lower legs.
[2024-05-16] MEDS: LIDOCAINE 1% 20 ML INJ (12:24)
[2024-05-16] MEDS: CEFAZOLIN 2 GM/100 ML PREMIX 100 ML IV (12:25)
[2024-05-16] MEDS: BUPIVACAINE 0.25% (PF) 30 ML, EPINEPHrine 0.15 MG INJ (12:50)
--- NOTE | 2024-05-16 13:16 | P.OP_ITS ---
Procedure & Clinicians Procedure: Transrectal US guided prostate biopsy Groin cyst excision Same procedure as scheduled: Yes Indications: 53 y/o M noted to have low-risk prostate cancer that was noted upon review of his pathology following an open simple prostatectomy in Jul who has never had a confirmatory TRUS prostate biopsy and also has a 3cm mass near the base of his penile that appears consistent with a sebaceous cyst. Surgeon: Thomas Pruitt Click Yes if Unassisted: Yes Anesthesia Type: General Operative Notes Findings: Prostate US images consistent with a prior open simple prostatectomy, 3cm cyst near base of penis Closure Type: primary Specimen(s): other (Prostate biopsies, groin cyst) Estimated Blood Loss (mL): 5 Blood products transfused: none Procedure in detail: Transrectal Ultrasound of the Prostate with Needle Biopsy: 20100 Indication: 53 y/o M noted to have low-risk prostate cancer that was noted upon review of his pathology following an open simple prostatectomy in Jul. Following informed consent, he was transitioned into the left lateral decubitus position. The ultrasound probe was then coated in lubrication and gently inserted into his rectum. A total of 10cc of 1% Lidocaine was used for local anesthetic throughout the procedure. Transrectal US images of his prostate were then performed and a volume of 20 cc was calculated. A total of 12 biopsies were taken from the prostate and submitted as six different pathologic specimens (right base, right mid, right apex, left base, left mid, left apex). Hemostasis was evaluated at the end of the procedure and noted to be excellent. He tolerated the procedure well without any complications and the ultrasound probe was gently removed from his rectum. He was then repositioned into the supine position where general anesthesia was induced. All bony prominences were then properly padded and he was prepped and draped in the standard sterile fashion. A surgical timeout was conducted and all members of the operating team were in agreement. A 2cm incision was then made overlying the aforementioned cyst immediately la teral to the left side of the base of his penis. The subcutaneous tissues were then dissected using a combination of blunt, sharp and Bovie electrocautery. The cyst was released from all surrounding tissue and passed off the operative field intact for permanent specimen. The wound was then copiously irrigated with sterile water and hemostasis was evaluated and noted to be excellent at case end. The subcutaneous tissues were then reapproximated using 3-0 Vicryl in a deep dermal interrupted fashion and the skin edges reapproximated using Dermabond. Anesthesia was reversed, he was extubated in the OR and transferred to the PACU in stable condition for recovery. Complications: none Post-operative Condition: stable Disposition: PACU Plan for aftercare: Discharge home from PACU. Will contact with the results of his pathology and have him return to Urology clinic in 6-8 weeks for a wound check.
[2024-05-16] MEDS: OXYCODONE IR 5 MG TABLET PO (13:24)
== END 2024-05-16 13:45 | disposition home or self-care (01) ==
PROVIDERS: Family Provider Family Medicine; PCP Family Medicine; Referring Provider Urology; Visit Provider Urology
PROC: 0VJ43ZZ Inspection of Prostate and Seminal Vesicles, Percutaneous Approach (ICD-10-PCS; CPT 55876; principal; 2024-05-16 11:45)
DX: C61 Malignant neoplasm of prostate (principal); D36.10 Benign neoplasm of peripheral nerves and autonomic nervous system, unspecified
CPT/HCPCS: 55700; 54060; 76872; J0171; J0690; J2250; J2405; J2704; J3010